=== PATIENT | male | born 1975 | race Caucasian/White ===

== ENCOUNTER 2022-08-12 00:38 | Day surgery (SDC) | payer BC, SELFPAY ==
[2022-07-24 15:17] VITALS: BMI 32.6
[2022-08-12 07:12] VITALS: BP 127/77; PULSE 67; RESP 18; TEMP 36.3; O2SAT 99; BMI 31.7
[2022-08-12] MEDS: LACTATED RINGERS 1,000 ML 150 ML IV CONT (07:25)
--- NOTE | 2022-08-12 08:09 | P.PNAN_ITS ---
Anes - Initial Pre Proc Eval Procedure: Operation Date: 08/12/22 08:30 Proposed Procedures p Screening Colonoscopy - Manuelito Petit MD Date/Time: 08/12/22 08:09 Surgeon: Manuelito Petit MD Pre Op Diagnosis: neoplasm screening Patient Data Age: 47 Gender: M Height: 1.73 m Weight: 94.8 kg Last Vital Signs Temp 97.3 F L 08/12/22 07:12 Pulse 67 08/12/22 07:12 Resp 18 08/12/22 07:12 BP 127/77 08/12/22 07:12 Pulse Ox 99 08/12/22 07:12 O2 Del Method Room Air 08/12/22 07:12 Allergies Allergy/AdvReac Type Severity Reaction Status Date / Time No Known Allergies Allergy Verified 08/12/22 07:16 Home Medications Medication Instructions Recorded Confirmed Type elviteg 150 mg-cob 150 mg-emtricit 1 tablet PO DAILY 07/24/22 08/12/22 History 200 mg-tenofo alafenam 10 mg tablet (Genvoya) escitalopram oxalate 10 mg tablet 10 mg PO DAILY 07/24/22 08/12/22 History (Lexapro) Patient hx anesthesia problems: none Family hx anesthesia problems: none Results Review: All pre-operative results and documents have been reviewed as part of the pre- operative evaluation. [facility] Social History Social History Smoking status: Never smoker Alcohol intake: never Substance use: never Substance use type: does not use Living arrangements: with family Spiritual care concerns: No Anes - Eval Final PreProcedure Day of Procedure 08/12/22 08:09 Patient weight: normal Heart: regular rate and rhythm Lungs: clear to auscultation Airway: Mallampati scale class II Neurological: alert and oriented Last oral intake: >/= 8 hours ASA classification: II Emergent: no Anesthetic plan: proceed Anesthesia type and monitoring: general GIVS and standard monitoring Results Review: All pre-operative results and documents have been reviewed as part of the pre- operative evaluation. Informed Consent: The patient's anesthetic plan and its attendant risks and benefits were discussed with the patient/family/POA. Questions were solicited and answers provided to the satisfaction of the patient/family/POA.
--- NOTE | 2022-08-12 08:21 | PM.HPGS ---
History of Present Illness History of Present Illness Consent: Risks, benefits, and alternatives have been discussed and questions answered. Patient agrees to proceed with procedure. Chief complaint: neoplasm screening Narrative: Kyler nAglin is a 47 year old male here for first screening colonoscopy Review of Systems Constitutional: Constitutional: Denies headache(s) and Denies weakness Eyes: Eyes: Denies blurry vision ENT: Reports Normal hearing present, Denies headache(s) and Denies neck pain Cardiovascular: Cardiovascular: Denies chest pain and Denies dyspnea Respiratory: Respiratory: Denies dyspnea Gastrointestinal: Gastrointestinal: Reports no additional gastrointestinal complaints Genitourinary: Genitourinary: Denies dysuria Musculoskeletal: Musculoskeletal: Denies neck pain Integumentary/Breasts: Skin/Breast: Denies dry skin Neurologic: Reports Normal hearing present, Denies headache(s) and Denies weakness Psychiatric: Psychiatric: Denies anxiety Endocrine: Endocrine: Denies change in body appearance Hematologic/Lymphatic: Hematologic/Lymphatic: Denies easy bleeding Allergic/Immunologic: Allergic/Immunologic: Denies urticaria PMFSH Past Medical History Medical History (Updated 08/12/22 @ 08:22 by Manuelito Petit MD) Colon cancer screening Social History Social History Smoking status: Never smoker Alcohol intake: never Substance use: never Substance use type: does not use Living arrangements: with family Spiritual care concerns: No Meds Home Medications and Allergies Home Medications Medication Instructions Recorded Confirmed Type elviteg 150 mg-cob 150 mg-emtricit 1 tablet PO DAILY 07/24/22 08/12/22 History 200 mg-tenofo alafenam 10 mg tablet (Genvoya) escitalopram oxalate 10 mg tablet 10 mg PO DAILY 07/24/22 08/12/22 History (Lexapro) Allergies Allergy/AdvReac Type Severity Reaction Status Date / Time No Known Allergies Allergy Verified 08/12/22 07:16 Vital Signs Vital Signs - 24 hr 08/12/22 07:12 Temperature 97.3 F L Pulse Rate 67 Respiratory Rate 18 Blood Pressure 127/77 Pulse Oximetry 99 Oxygen Delivery Room Air Exam Const: General: comfortable and no acute distress HENMT: General nose exam: Normal nares present Eyes: General: appearance normal, both eyes and all related structures Neck: Neck: no JVD Resp: Auscultation: clear to auscultation bilaterally Cardio: Rate: regular rate Rhythm: regular rhythm GI: Inspection: non-distended GI Palp: Yes Soft to palpation Skin: General skin exam: normal color Neuro: General: gait normal Speech: normal speech Extrem: General: normal to inspection Psych: Mental Status: mental status grossly normal Assessment and Plan Assessment and plan (1) Colon cancer screening: Code(s): Z12.11 - Encounter for screening for malignant neoplasm of colon Status: Acute Assessment and Plan: colonoscopy
[2022-08-12 08:45] VITALS: BP 99/61; PULSE 60; RESP 16; O2SAT 97
[2022-08-12 08:55] VITALS: BP 105/67; PULSE 64; RESP 16; O2SAT 94
[2022-08-12 09:05] VITALS: BP 121/72; PULSE 61; RESP 23; O2SAT 96
== END 2022-08-12 09:15 | disposition home or self-care (01) ==
PROVIDERS: Visit Provider Internal Medicine Gastroenterology
PROC: 0DJD8ZZ Inspection of Lower Intestinal Tract, Via Natural or Artificial Opening Endoscopic (ICD-10-PCS; CPT 45378; principal; 2022-08-12 08:30)
DX: Z12.11 Encounter for screening for malignant neoplasm of colon (principal); D12.0 Benign neoplasm of cecum; K64.8 Other hemorrhoids
CPT/HCPCS: 45385; 88305; J2001; J2704; J7120